=== PATIENT | female | born 1960 | race Caucasian/White ===

== ENCOUNTER 2023-08-10 11:20 | Emergency (ER) | payer OTHER ==
[~2023-08-10] VITALS: Ht 160 cm; Wt 99.3 kg
[2023-08-10 11:30] VITALS: BP_SYST 148; PULSE 90; RESP 18; TEMP 98.3; O2SAT 98
[2023-08-10] MEDS: HYDROcodone/ACETAMIN 10-325 MG TAB PO ONE (11:40)
[2023-08-10] MEDS: KETOROLAC TROMETHAMINE 60 MG/2 ML VIAL IM ONE (11:43)
[2023-08-10] MEDS ORDERED: HYDR-3917 PO (12:34)
[2023-08-10] MEDS ORDERED: IBUP-1969 PO (12:34)
[2023-08-10 12:48] VITALS: BP_SYST 143; PULSE 73; RESP 20; TEMP 97.8; O2SAT 98
== END 2023-08-10 12:54 | disposition home or self-care (01) ==
LOC: SED 11:20
DX: S00.83XA Contusion of other part of head, initial encounter (principal); M54.2 Cervicalgia; M54.50 Low back pain, unspecified; Z79.899 Other long term (current) drug therapy; Y04.8XXA Assault by other bodily force, initial encounter; Y93.89 Activity, other specified; Y92.89 Other specified places as the place of occurrence of the external cause; Y99.8 Other external cause status
CPT/HCPCS: 99283; 96372; J1885